=== PATIENT | female | born 1965 | race Caucasian/White ===

== ENCOUNTER 2023-08-21 09:09 | Day surgery (SDC) | payer OTHER ==
[~2023-08-21] VITALS: Ht 162.6 cm; Wt 101.2 kg
[2023-08-21] MEDS ORDERED: SIMETHICONE 40 MG/0.6 ML ONE (11:03)
[2023-08-21] MEDS ORDERED: fentaNYL citrate 0.05 MG/ML VIAL ONE (11:03)
[2023-08-21] MEDS ORDERED: MIDAZOLAM 5 MG/5 ML VIAL ONE (11:03)
[2023-08-21] MEDS ORDERED: LIDOCAINE 2% 100 MG/5 ML UJET TP ONE (11:04)
[2023-08-21] MEDS ORDERED: fentaNYL citrate 0.05 MG/ML VIAL IVP ONE (14:20)
[2023-08-21] MEDS ORDERED: MIDAZOLAM 2 MG/2 ML VIAL IV ONE (14:20)
== END 2023-08-21 13:08 | disposition home or self-care (01) ==
LOC: MOR 09:09 → MMU 09:13 → MOR 13:08
PROVIDERS: ATTEND Internal Medicine Gastroenterology
DX: Z12.11 Encounter for screening for malignant neoplasm of colon (principal); D12.4 Benign neoplasm of descending colon; K57.30 Diverticulosis of large intestine without perforation or abscess without bleeding; I10 Essential (primary) hypertension; Z90.710 Acquired absence of both cervix and uterus; Z79.899 Other long term (current) drug therapy
CPT/HCPCS: 45385; J2250; J3010